=== PATIENT | female | born 1985 | race Caucasian/White ===

== ENCOUNTER 2024-04-04 09:07 | Emergency (ER) | payer OTHER, SELFPAY ==
[2024-04-04 09:30] VITALS: BP 153/96; PULSE 104; RESP 18; TEMP 36.2; O2SAT 99
--- NOTE | 2024-04-04 09:39 | ED.EAR ---
HPI - Ear Problem General Chief complaint: Ear Stated complaint: Ear and Sinus Pain Time Seen by Provider: 04/04/24 09:39 Source: patient Mode of arrival: ambulatory Limitations: no limitations History of Present Illness HPI Narrative: 38 yo F presents with c/o sinus Congestion, postnasal drainage, intermittent sore throat, left ear pain for 7-10 days. Has been taking Mucinex, Tylenol and Motrin to treat symptoms. No relief of nasal congestion, left ear pain. Afebrile. All systems reviewed and negative except as noted above. Related Data Home Medications Medication Instructions Recorded Confirmed buspirone 7.5 mg tablet mg 04/04/24 clobetasol 0.05 % topical cream topical 04/04/24 lisinopril 5 mg tablet mg 04/04/24 metoprolol succinate 25 mg mg PO 04/04/24 tablet,extended release 24 hr norethindrone 1 mg-ethinyl tablet 04/04/24 estradiol 20 mcg (24)-iron 75 mg (4) tablet (Aurovela 24 Fe) semaglutide 0.25 mg or 0.5 mg (2 mg subcut 04/04/24 mg/3 mL) subcutaneous pen injector (Ozempic) venlafaxine 150 mg mg PO 04/04/24 capsule,extended release 24 hr Allergies Allergy/AdvReac Type Severity Reaction Status Date / Time No Known Allergies Allergy Verified 04/04/24 09:19 Review of Systems Review of Systems: CONSTITUTIONAL: Denies fever, chills, or sweats. EYES: Denies visual changes, redness, or discharge. ENT: Reports rhinorrhea, congestion, sinus congestion, intermittent sore throat, left ear pain CARDIOVASCULAR: Denies chest pain, palpitations, or edema. RESPIRATORY: Denies cough or dyspnea. GASTROINTESTINAL: Denies abdominal pain, nausea, vomiting, or diarrhea. GENITOURINARY: Denies dysuria or hematuria. SKIN: Denies rash or itching. MUSCULOSKELETAL: Denies back pain, joint pain, or myalgia. NEUROLOGIC: Denies headache, numbness, or weakness. PSYCHIATRIC: Denies anxiety or depression. All other systems reviewed are negative, except as documented in HPI. [facility] Family History Family History (Updated 08/05/18 @ 14:08 by DOCTOR UNKNOWN) Other Diabetes mellitus Family history of cardiovascular disease Hypertension Social History Social History Smoking status: Never smoker Alcohol intake: current Comments At time of signature, agree with nursing past medical, surgical, social and family history. There is no relevant family history pertinent to the presenting complaint. Exam Narrative: GENERAL: This is a well-nourished, well-developed patient, in no apparent distress. HEAD: normocephalic, atraumatic. EYES: PERRL. Sclera clear/white. Vision is grossly intact. EARS: External ears normal, auditory canals clear and without drainage, fluid to left TM with mild erythema and bulging. Clear fluid right TM without erythema. No perforation bilaterally. Hearing grossly intact. NOSE: External nose normal with Moderate congestion, erythema and swelling to bilateral nares THROAT: Mucous membranes moist, postnasal drainage with mild erythema. No swelling or exudates. NECK: Neck supple, non-tender without lymphadenopathy, masses or thyromegaly. CARDIOVASCULAR: Regular rate and rhythm without murmurs, gallops, or rubs. RESPIRATORY: Clear to auscultation. Breath sounds equal bilaterally. No wheezes, rales, or rhonchi. SKIN: warm, Dry, intact with no suspicious lesions or rash, good texture and turgor. NEURO: awake, alert, and oriented to person, place and time. There were no obvious focal neurologic abnormalities. EXTREMITIES: No joint tenderness, effusion, or edema noted. Course Course Level of Care: Express Care Visit Vital Signs Vital signs: Vital Signs Temperature 36.2 C L 04/04/24 09:30 Pulse Rate 104 H 04/04/24 09:30 Respiratory Rate 18 04/04/24 09:30 Blood Pressure 153/96 H 04/04/24 09:30 Pulse Oximetry 99 04/04/24 09:30 Oxygen Delivery Room Air 04/04/24 09:30 Temperature 36.2 C L 04/04/24 09:30 Pulse Rate 104 H 03/15
== END 2024-04-04 10:05 | disposition home or self-care (01) ==
PROVIDERS: Emergency Provider Nurse Practitioner Family; PCP Physician Assistant
DX: J01.90 Acute sinusitis, unspecified (principal); H65.03 Acute serous otitis media, bilateral
CPT/HCPCS: 99213; G0463

== ENCOUNTER 2024-08-07 15:16 | Outpatient (CLI) | payer OTHER, SELFPAY ==
--- NOTE | ~2024-08-07 | XR_ITS ---
3 VIEWS LUMBAR SPINE Ordering provider: Radha Thurston, [place] History: . POSITIVE AMY . Comparison: None. FINDINGS: VERTEBRAL BODIES: No visible fracture or subluxation. Degenerative changes of the spine. DISK SPACES: Narrowing of the disc L1-L2, L2-L3, L3-L4 and L4-L5. Facet joint disease at the level of L4-L5 and L5-S1. SOFT TISSUES: Normal. Calcification seen in the left renal area which may be a stone. IMPRESSION: No acute osseous abnormality lumbar spine. Multilevel degenerative disc disease. Possible left kidney stone. Reviewed, dictated and finalized at location A.
--- NOTE | ~2024-08-07 | XR_ITS ---
XR hand RT 2V Ordering provider: Radha Thurston, [place]VAR[place] History: . POSITIVE AMY . Comparison: None. FINDINGS: BONES: No acute fracture or dislocation. JOINT SPACES: Normal. SOFT TISSUES: Normal. IMPRESSION: No acute osseous abnormality right hand. Reviewed, dictated and finalized at location A.
--- NOTE | ~2024-08-07 | XR_ITS ---
XR sacroiliac joints min 3V Ordering provider: Radha Thurston, ALVARADO History: . POSITIVE AMY . Comparison: None. FINDINGS: BONES: No acute fracture or dislocation. JOINTS: The bilateral sacroiliac joint spaces appear well maintained. No bony fusion of the sacroilia c joints or bony erosions. Bilateral facet joint disease at the level of L5-S1. SOFT TISSUES: Unremarkable. IMPRESSION: NO ACUTE OSSEOUS ABNORMALITY. NORMAL SACROILIAC JOINTS. Reviewed, dictated and finalized at location A.
--- NOTE | ~2024-08-07 | XR_ITS ---
XR hand LT 2V Ordering provider: Radha Thurston, ALVARADO History: . POSITIVE AMY . Comparison: None. FINDINGS: BONES: No acute fracture or dislocation. JOINT SPACES: Well maintained. SOFT TISSUES: Unremarkable. IMPRESSION: No acute osseous abnormality left hand. No significant abnormality seen. Reviewed, dictated and finalized at location A.
--- NOTE | ~2024-08-07 | XR_ITS ---
XR foot RT 2V Ordering provider: Radha Thurston, [place]VAR[place]O History: . POSITIVE AMY . Comparison: December 17, 2018 FINDINGS: BONES: No acute fracture or dislocation. Postoperative changes in the lower fibula. JOINT SPACES: No tarsal coalition. Cystic area in the navicular bone and first cuneiform which may indicate osteoarthritic changes. Poss ible narrowing of the tarsometatarsal joints. SOFT TISSUES: Normal. IMPRESSION: No acute osseous abnormality of the right foot. Possible mild osteoarthritic changes. Reviewed, dictated and finalized at location A.
--- NOTE | ~2024-08-07 | XR_ITS ---
XR foot LT 2V Ordering provider: Radha Thurston, [place]VAR[place] History: . POSITIVE AMY . Comparison: None. FINDINGS: BONES: No acute fracture or dislocation. JOINT SPACES: Normal. No tarsal coalition. SOFT TISSUES: Normal. IMPRESSION: No acute osseous abnormality left foot. Reviewed, dictated and finalized at location A.
== END 2024-08-07 15:17 | disposition home or self-care (01) ==
LOC: MICIMG 15:17
PROVIDERS: PCP Physician Assistant; Visit Provider Physician Assistant
DX: R76.8 Other specified abnormal immunological findings in serum (principal); M25.50 Pain in unspecified joint; M51.369 Other intervertebral disc degeneration, lumbar region without mention of lumbar back pain or lower extremity pain
CPT/HCPCS: 72100; 72202; 73120; 73620